=== PATIENT | female | born 1950 | race Caucasian/White ===

== ENCOUNTER → 2016-11-25 | Outpatient (CLI) | payer OTHER, BC ==
[~2016-11-25] MED LIST: OPTIRAY 320 IV PRN
--- NOTE | 2016-11-25 11:24 | DIAGNOSTIC IMAGING REPORT ---
CT OF THE CHEST WITH IV CONTRAST CLINICAL HISTORY: Non-small cell lung cancer. COMPARISON STUDY: No previous studies for comparison. TECHNIQUE: Following IV administration of 93 mL of Optiray-320, helical axial images of the chest were obtained. Images were viewed in the axial, sagittal and coronal planes. IV contrast was administered without complication. CT DOSE: 212.30 mGy.cm FINDINGS: A right internal jugular Eyvikk-v-Vach is in place. No enlarged axillary, mediastinal or hilar lymph nodes are present. There is mild dilatation of the central pulmonary arteries. The heart is mildly enlarged. There are expected postsurgical findings consistent with a right lower lobe resection. A 3 mm subpleural nodule within the right lower lobe is noted on image 233 of 326. There is no pneumothorax. There is a trace right pleural effusion. No suspicious osseous lesion is present. Visualized portions of the upper abdomen are unremarkable. IMPRESSION: 1. No convincing evidence for metastatic disease within the chest. 2. 3 mm subpleural nodule within the right lower lobe with this is likely benign but could be correlated with prior imaging studies if available. 3. Trace right pleural effusion. Electronically signed by: Blue Langley M.D. 11/25/2016 11:23 AM Dictated Date/Time: 11/25/2016 10:47 AM
== END | disposition home or self-care (01) ==
LOC: C.CTS 10:07
PROVIDERS: ATTEND Internal Medicine Hematology & Oncology
DX: C34.31 Malignant neoplasm of lower lobe, right bronchus or lung (principal)